=== PATIENT | female | born 1945 | race Caucasian/White ===

== ENCOUNTER 2022-04-22 08:34 | Emergency (ER) | payer OTHER ==
[2022-04-22 08:41] VITALS: BP 130/73; PULSE 83; TEMP 97.9; BMI 31.6
[2022-04-22 11:17] LABS: URINE APPEARANCE CLEAR; URINE COLOR YELLOW
[2022-04-22 11:18] LABS: URINE BILIRUBIN NEGATIVE (NEGATIVE); URINE GLUCOSE (UA) 3+ (NEGATIVE); URINE KETONE TRACE (NEGATIVE)
[2022-04-22 11:19] LABS: PH,URINE 6.5 (5.0-8.0); URINE PROTEIN 2+ (NEGATIVE)
[2022-04-22 11:20] LABS: URINE NITRITE NEGATIVE (NEGATIVE)
[2022-04-22 11:22] LABS: EPI CELLS 7.5 /uL (0-25.1); HYALINE CASTS 2.26 /uL (0-3.1); URINE BACTERIA 560.5 /uL (0-1359); URINE LEUK ESTERASE 1+ (NEGATIVE); URINE RBC 515.7 /uL (0-23.9); URINE WBC 1204.8 /uL (0-25.8)
== END 2022-04-22 11:46 | disposition home or self-care (01) ==
LOC: JER 08:34
DX: N30.01 Acute cystitis with hematuria (principal)
CPT/HCPCS: 81003; 87086; 87186; 99283-25

== ENCOUNTER 2022-05-04 09:41 | Emergency (ER) | payer OTHER ==
[2022-05-04 09:51] VITALS: RESP 18; BMI 29.9
[2022-05-04 11:38] LABS: BASO % 0.9 % (0-2.0); EOS % 0.2 % (0-4.5); HEMATOCRIT 38.7 % (32.4-45.2); HEMOGLOBIN 12.1 GM/dL (10.7-15.3); LYMPH % 14.6 % (8-40); MCH 24.8 pg (25.7-33.7); MCHC 31.3 g/dl (32.0-36.0); MEAN CELL VOLUME 79.1 fl (80-96); MEAN PLT VOLUME 7.6 fl (7.5-11.1); MONO % 17.1 % (3.8-10.2); NEUT % 67.2 % (42.8-82.8); PLATELET COUNT 256 10^3/uL (134-434); RBC 4.89 M/mm3 (3.60-5.2); RDW 17.1 % (11.6-15.6)
[2022-05-04] MEDS ORDERED: SODIUM CHLORIDE 0.9% 500 ML INFUS.BAG IV ONE (11:39)
[2022-05-04 11:49] LABS: CALCIUM 9.2 mg/dL (8.5-10.1)
[2022-05-04 11:50] LABS: ALBUMIN 3.8 g/dl (3.4-5.0); MAGNESIUM 2.9 mg/dL (1.8-2.4)
[2022-05-04 11:53] LABS: CREATININE 0.9 mg/dL (0.55-1.3)
[2022-05-04 11:55] LABS: BILIRUBIN,TOTAL 0.4 mg/dL (0.2-1); TOT PROT 7.2 g/dl (6.4-8.2)
[2022-05-04 12:14] LABS: URINE APPEARANCE CLEAR; URINE COLOR YELLOW
[2022-05-04 12:15] LABS: EPI CELLS 11 /uL (0-25.1); HYALINE CASTS 4 /uL (0-3.1); URINE BACTERIA 12 /uL (0-1359); URINE BILIRUBIN NEGATIVE (NEGATIVE); URINE GLUCOSE (UA) 3+ (NEGATIVE); URINE KETONE TRACE (NEGATIVE); URINE LEUK ESTERASE NEGATIVE (NEGATIVE); URINE NITRITE NEGATIVE (NEGATIVE); URINE PROTEIN 1+ (NEGATIVE); URINE RBC 17 /uL (0-23.9); URINE WBC 5 /uL (0-25.8)
[2022-05-04] MEDS ORDERED: BEBTELOVIMAB (EUA) 175 MG/2 ML VIAL IVPUSH ONE (13:08)
[2022-05-04 16:08] VITALS: BP 124/68; PULSE 87; TEMP 98.6
== END 2022-05-04 16:54 | disposition home or self-care (01) ==
LOC: JER 09:41
DX: U07.1 COVID-19 (principal)
CPT/HCPCS: 0241U-QW; 36415; 71046-TC-FY; 80053; 81003; 83735; 84484; 85025; 87086; 93005; 93010; 99284-25; M0222; Q0222